=== PATIENT | female | born 1985 | race Caucasian/White ===

== ENCOUNTER 2016-12-21 12:38 | Emergency (ER) | payer MEDICAID, OTHER ==
[~2016-12-21] VITALS: Ht 157.5 cm; Wt 51.0 kg
[2016-12-21 12:52] VITALS: Ht 157.5 cm; Wt 51.0 kg
[2016-12-21] MEDS ORDERED: ACETAMINOPHEN 325 MG TAB PO STA (14:54)
[2016-12-21 15:16] LABS: ADD SCAN DIFF NO
[2016-12-21 15:18] LABS: BASOPHILS % 0.3 % (0.0-2.0); EOSINOPHILS % 0.3 % (0.0-7.0); HEMATOCRIT 43.3 % (37.0-47.0); HEMOGLOBIN 14.7 g/dl (12.0-16.0); LYMPHOCYTES # 2.2 10^3/ul (0.8-2.9); LYMPHOCYTES % 20.6 % (15.0-51.0); MEAN CORPUSCULAR HEMOGLOBIN 30.8 pg (29.0-33.0); MEAN CORPUSCULAR HGB CONC 33.9 g/dl (32.0-37.0); MEAN CORPUSCULAR VOLUME 90.8 fl (82.0-101.0); MEAN PLATELET VOLUME 11.9 fl (7.4-10.4); MONOCYTE # 0.6 10^3/ul (0.3-0.9); MONOCYTES % 5.3 % (0.0-11.0); NEUTROPHIL # 7.7 10^3/ul (1.6-7.5); NEUTROPHILS % 72.9 % (39.0-77.0); PLATELET COUNT 188 10^3/UL (140-415); RED BLOOD COUNT 4.77 10^6/ul (4.20-5.40); RED CELL DISTRIBUTION WIDTH 12.4 % (11.5-14.5); WHITE BLOOD COUNT 10.6 10^3/ul (4.8-10.8)
[2016-12-21 15:20] LABS: ADD UMIC NO; URINE BILIRUBIN (Dip) NEGATIVE (NEGATIVE); URINE BLOOD (Dip) NEGATIVE (NEGATIVE); URINE COLOR LT. YELLOW (YELLOW); URINE GLUCOSE (Dip) NEGATIVE (NEGATIVE); URINE KETONES (Dip) TRACE (NEGATIVE); URINE LEUKOCYTE ESTERASE (Dip) NEGATIVE (NEGATIVE); URINE NITRITE (Dip) NEGATIVE (NEGATIVE); URINE TOTAL PROTEIN (Dip) NEGATIVE (NEGATIVE); URINE UROBILINOGEN (Dip) 0.2 E.U./dL (0.1-1.0)
--- NOTE | 2016-12-21 15:47 | RADRPT ---
PROCEDURE: OBSTETRICAL ULTRASOUND WITH ENDOVAGINAL IMAGES CLINICAL INDICATION: Vaginal Bleed () TECHNIQUE: Multiple sonographic images of the pelvis were obtained utilizing a transabdominal and endovaginal technique. The images were reviewed on a PACS workstation. COMPARISON: None. LMP: 10/23/2016 FINDINGS: There is a single live intrauterine with heart rate of 100 beats per minute, mean sa c diameter of 1.31 cm, yolk sac, and crown-rump length of 0.58 cm which is consistent with a gestati onal age of 6 weeks, 2 days . The estimated date of delivery by ultrasound is 08/14/2017 . The estimated gestational age by LMP is 8 weeks, 3 days . The estimated date of delivery by LMP is 07/30/2017 . There is a 4 x 3 x 4 mm hypoechoic lesion adjacent to the gestational sac consistent with a subchori onic hemorrhage. The right ovary measures 3.7 x 2.1 x 2.2 cm. The left ovary is not visualized. There is normal vascu lar flow in the right ovary No significant ovarian lesions are seen. No significant pelvic free fluid is identified. IMPRESSION: Single live intrauterine consistent with a gestational age of 6 weeks, 2 days . The estimated date of delivery is 08/14/2017 . Dating by ultrasound is within 2 weeks and 1 day of dating by LMP. Low heart rate of 100 beats per minute is likely due to the early nature of the . At tention on follow-up is recommended. 4 mm subchorionic hemorrhage. Nonvisualization of the left ovary. RPTAT: EE Physician Benedicto Date Time Electronically viewed and signed by Physician Benedicto on 12/21/2016 15:47 /
[2016-12-21 16:49] VITALS: BP 138/81; PULSE 77; RESP 16
--- NOTE | 2016-12-21 18:04 | ERD ---
ER Documentation Chief Complaint Date/Time DATE: 12/21/16 TIME: 18:01 Chief Complaint VAGINAL BLEEDING X 1 DAY, 7 WEEKS , BACK PAIN HPI Patient is a 31-year-old female who is with a last menstrual period of 06/29 who presents to the ED with mild vaginal spotting yesterday. She also complains of mild pelvic pain. Denies dysuria. Denies fever or chills. Denies abdominal pain, nausea, vomiting or diarrhea. She states that she has an OB doctor but is unsure of the name of the clinic or the name of the doctor. She has no other complaints. ROS All systems reviewed and are negative except as per history of present illness. Allergies Allergies: Coded Allergies: No Known Allergy (Unverified , 12/21/16) PMhx/Soc Medical and Surgical Hx: pt denies Medical Hx, pt denies Surgical Hx Physical Exam Vitals Vital Signs Date Time Temp Pulse Resp B/P Pulse Ox O2 Delivery O2 Flow Rate FiO2 12/21/16 16:49 77 16 138/81 100 Room Air 12/21/16 12:52 98.1 75 18 135/69 100 Physical Exam GENERAL: Well-developed, well-nourished female. Appears in no acute distress. HEAD: Normocephalic, atraumatic. EYES: Pupils are equally reactive bilaterally. EOMs grossly intact. No conjunctival erythema. ENT: Moist mucous membranes. No uvula deviation. No kissing tonsils. No exudates. NECK: Supple. No lymphadenopathy or thyromegaly. No meningismus. negative kernig. negative brudinski. LUNG: Clear to auscultation bilaterally. No rhonchi, wheezing, rales or coarse breath sounds. HEART: Regular rate and rhythm. No murmurs, rubs or gallops. ABDOMEN: No scars, ecchymosis or rashes noted. Soft, nontender, and nondistended. Positive bowel sounds in all four quadrants. No rebound tenderness , no guarding. (-) McBurneys point tenderness. No CVA tenderness. BACK: No midline tenderness. Extremities: Equal pulses bilaterally. No peripheral clubbing, cyanosis or edema. No unilateral leg swelling. NEUROLOGIC: Alert and oriented. Moving all four extremities. 5/5 strength in all extremities. Normal speech. Steady gait. SKIN: Normal color. Warm and dry. No rashes or lesions. Capillary refill < 2 seconds Result Diagram: 12/21/16 1505 Results 24 hrs Laboratory Tests Test 12/21/16 15:05 White Blood Count 10.610^3/ul Red Blood Count 4.7710^6/ul Hemoglobin 14.7g/dl Hematocrit 43.3% Mean Corpuscular Volume 90.8fl Mean Corpuscular Hemoglobin 30.8pg Mean Corpuscular Hemoglobin Concent 33.9g/dl Red Cell Distribution Width 12.4% Platelet Count 98685^3/UL Mean Platelet Volume 11.9fl Neutrophils % 72.9% Lymphocytes % 20.6% Monocytes % 5.3% Eosinophils % 0.3% Basophils % 0.3% Nucleated Red Blood Cells % 0.0/100WBC Neutrophils # 7.710^3/ul Lymphocytes # 2.210^3/ul Monocytes # 0.610^3/ul Eosinophils # 0.010^3/ul Basophils # 0.010^3/ul Nucleated Red Blood Cells # 0.010^3/ul Urine Color LT. YELLOW Urine Clarity CLEAR Urine pH 7.0 Urine Specific [place] 1.010 Urine Ketones TRACE Urine Nitrite NEGATIVE Urine Bilirubin NEGATIVE Urine Urobilinogen 0.2 E.U./dL Urine Leukocyte Esterase NEGATIVE Urine Hemoglobin NEGATIVE Urine Glucose NEGATIVE% Urine Total Protein NEGATIVE Beta HCG, Quantitative 83943.0mIU/ml Current Medications Medications (Trade) Dose Ordered Sig/Robert Route PRN Reason Start Time Stop Time Status Last Admin Dose Admin Acetaminophen (Tylenol Tab) 650 mg ONCE STAT PO 12/21/16 14:54 12/21/16 14:55 DC Procedures/MDM ER COURSE: I kept the patient and/or family informed of laboratory and diagnostic imaging results throughout the emergency room course. EKG, MONITORS, & DIAGNOSTIC IMAGING: [place] [id number] Radiology Main Line: [phone] DIAGNOSTIC IMAGING REPORT Patient: LAWANDA BOX : 1985 Age: 31 Sex: F MR #: [id number] DOS: 12/21/16 1454 Ordering MD: AUSTIN NICK PA-C Location: [facility] Room/Bed: PROCEDURE: OBSTETRICAL ULTRASOUND WITH ENDOVAGINAL IMAGES CLINICAL INDICATION: Vaginal Bleed () TECHNIQUE: Multiple sonographic images of the pelvis were obtained utilizing a transabdominal and endovaginal technique. The images were reviewed on a PACS workstation. COMPARISON: None. LMP: 10/23/2016 FINDINGS: There is a single live intrauterine with heart rate of 100 beats per minute, mean sac diameter of 1.31 cm, yolk sac, and crown-rump length of 0.58 cm which is consistent with a gestational age of 6 weeks, 2 days . The estimated date of delivery by ultrasound is 08/14/2017 . The estimated gestational age by LMP is 8 weeks, 3 days . The estimated date of delivery by LMP is 07/30/2017 . There is a 4 x 3 x 4 mm hypoechoic lesion adjacent to the gestational sac consistent with a subchorionic hemorrhage. The right ovary measures 3.7 x 2.1 x 2.2 cm. The left ovary is not visualized. There is normal vascular flow in the right ovary No significant ovarian lesions are seen. No significant pelvic free fluid is identified. IMPRESSION: Single live intrauterine consistent with a gestational age of 6 weeks , 2 days . The estimated date of delivery is 08/14/2017 . Dating by ultrasound is within 2 weeks and 1 day of dating by LMP. Low heart rate of 100 beats per minute is likely due to the early nature of the . Attention on follow-up is recommended. 4 mm subchorionic hemorrhage. Nonvisualization of the left ovary. RPTAT: EE Physician Benedicto Date Time Electronically viewed and signed by Physician Benedicto on 12/21/2016 15:47 RA/ CC: AUSTIN NICK PA-C RH: O+ [facility].0 MEDICATIONS: Tylenol. Tolerated well with no adverse reaction. LAB INTERPRETATION: CBC showed no evidence of systemic infection or severe anemia. UA showed no evidence of leukocytes, nitrites or hematuria. Urine test was negative. MEDICAL DECISION MAKING: This is a 31-year-old female who presents with vaginal spotting and pelvic pain 1 day. She is . Vital signs were reviewed. Patient is afebrile. Patient is not hypoxic. Patient is not toxic or ill-appearing. Her ultrasound is read by radiologist is unremarkable. Low suspicion for ovarian torsion, PID, tuboovarian abscess, ectopic , bowel obstruction, pyelonephritis, appendicitis, cervicitis, septic , molar , HELLP syndrome, preeclampsia, eclampsia, placenta previa, placenta abruptia. DISCHARGE: At this time, patient is stable for discharge and outpatient management with no new complaints during the ER course. Patient was sent home with copy of imaging and laboratory studies to follow-up with her OB doctor.. Patient will be discharged home with instructions to recheck for new or worsening symptoms such as fever, nausea, weakness, LOC and to follow up with primary care in the next 1 -2 days. Patient was advised to return to the ER for any new or worsening symptoms. Plan was discussed and patient and/or family understands and agrees. Home instructions were given. Departure Diagnosis: Primary Impression: Vaginal bleeding in patient at less than 20 weeks ges... Condition: Stable Patient Instructions: Bleeding During Early Referrals: NO PRIMARY,CARE PHYSICIAN (PCP) Additional Instructions: Llame al doctor MAANA y tracey donna NARENDRA PARA DENTRO DE 1-2 GUNTER.Dgale a la secretaria que nosotros le instruimos hacer esta narendra.Avise o llame si page condicin se empeora antes de la narendra. Regresa aqui si peor o no mejor. AUSTIN NICK PA-C Dec 21, 2016 18:03
== END 2016-12-21 16:50 | disposition home or self-care (01) ==
LOC: FTE 12:38
DX: O20.9 Hemorrhage in early pregnancy, unspecified (principal); R10.2 Pelvic and perineal pain; Z3A.01 Less than 8 weeks gestation of pregnancy
CPT/HCPCS: 36415; 76801; 76817; 81003; 84702; 85025; 86900; 86901; Z7502; Z7610

== ENCOUNTER 2017-08-17 05:10 | Inpatient (IN) | payer MEDICAID ==
[~2017-08-17] VITALS: Ht 149.9 cm; Wt 65.3 kg
[2017-08-17 05:36] VITALS: BP 125/63; RESP 18; Ht 149.9 cm; Wt 65.3 kg
[2017-08-17] MEDS: LACTATED RINGER'S 1,000 ML IV SCH ×3 (05:55→15:17)
--- NOTE | 2017-08-17 05:56 | RADRPT ---
PROCEDURE: Limited OB ultrasound CLINICAL INDICATION: Unknown presentation TECHNIQUE: Sonographic evaluation to assess the presentation was performed. Transabdominal imaging of the gravid uterus was performed. COMPARISON: No prior exam is available for comparison. FINDINGS: There is a single live intrauterine with cardiac activity, with a heart rate o f 141 bpm. position is cephalic. The placenta is fundal. IMPRESSION: Cephalic presentation. RPTAT: HH .Gayle Scott MD, MD Date Time Electronically viewed and signed by .Gayle Scott MD, on 08/17/2017 05:56 .G/
[2017-08-17] MEDS ORDERED: MISOPROSTOL 200 MCG TAB PR PRN ×3 (06:00→19:00)
[2017-08-17] MEDS ORDERED: CARBOPROST 250 MCG INJ IM PRN ×3 (06:00→19:00)
[2017-08-17] MEDS ORDERED: OXYTOCIN 30 UNITS/LR 500 ML IV SCH ×3 (06:00→07:00)
[2017-08-17] MEDS ORDERED: CEFAZOLIN 2 GM/50 ML (PMX) 50 ML IV SCH (06:00)
[2017-08-17] MEDS ORDERED: OXYTOCIN 30 UNITS/LR 500 ML IV PRN ×3 (06:00→19:00)
[2017-08-17] MEDS ORDERED: METHYLERGONOVINE 0.2 MG INJ IM PRN ×3 (06:00→19:00)
[2017-08-17 06:43] LABS: BASOPHILS % 0.4 % (0.0-2.0); EOSINOPHILS # 0.1 10^3/ul (0.0-0.5); EOSINOPHILS % 0.9 % (0.0-7.0); HEMATOCRIT 38.4 % (37.0-47.0); HEMOGLOBIN 13.6 g/dl (12.0-16.0); LYMPHOCYTES # 1.7 10^3/ul (0.8-2.9); LYMPHOCYTES % 20.5 % (15.0-51.0); MEAN CORPUSCULAR HEMOGLOBIN 31.9 pg (29.0-33.0); MEAN CORPUSCULAR HGB CONC 35.4 g/dl (32.0-37.0); MEAN CORPUSCULAR VOLUME 89.9 fl (82.0-101.0); MONOCYTE # 0.7 10^3/ul (0.3-0.9); NEUTROPHIL # 5.6 10^3/ul (1.6-7.5); NEUTROPHILS % 68.5 % (39.0-77.0); PLATELET COUNT 104 10^3/UL (140-415); RED BLOOD COUNT 4.27 10^6/ul (4.20-5.40); RED CELL DISTRIBUTION WIDTH 13.5 % (11.5-14.5); WHITE BLOOD COUNT 8.2 10^3/ul (4.8-10.8)
[2017-08-17] MEDS: DEXTROSE 5%-LR 1,000 ML IV SCH ×2 (06:43→14:43)
[2017-08-17 07:00] LABS: INR 0.87; PROTIME 11.9 Sec (11.9-14.9); PT RATIO 0.9
[2017-08-17] MEDS ORDERED: BUTORPHANOL 2 MG INJ IV PRN ×2 (07:00)
[2017-08-17] MEDS ORDERED: DINOPROSTONE 10 MG VAG SUPP VAG ONE (07:00)
[2017-08-17] MEDS ORDERED: IBUPROFEN 600 MG TAB PO PRN (07:00)
[2017-08-17] MEDS ORDERED: LIDOCAINE 1% (MPF) 30 ML INJ INJ PRN (07:00)
[2017-08-17 07:01] LABS: PARTIAL THROMBOPLASTIN TIME 28.6 Sec (25.0-35.0)
--- NOTE | 2017-08-17 07:29 | RADRPT ---
PROCEDURE: US OB. CLINICAL INDICATION: Size and dates TECHNIQUE: Multiple sonographic images of the pelvis were obtained. Transabdominal imaging only w as performed. The images were reviewed on a PACS workstation. COMPARISON: No prior studies are available for comparison. FINDINGS: There is a single live intrauterine gestation. Cardiac activity is present with 137 beats per minut e. position is transverse with head to the maternal left. Measurements were made in order to determine age. The results are as follows: BPD = 9.36 cm HC = 33.83 cm AC = 35.87 cm FL = 7.47 cm. Estimated gestational age of approximately 38 weeks 5 days. The estimated date of delivery is 08/26/2017. The EFW = 3693 g, 50th %ile. The placenta is fundal. There is no evidence for an abruption or placenta previa. There are no adnexal masses. IMPRESSION: 1. Single live intrauterine gestation of approximately 38 weeks 5 days, by ultrasound criteria. 2. The estimated date of delivery is 08/26/2017. 3. The estimated weight is 3693 g, 50 %ile. RPTAT: HH .Gayle Scott MD, Date Time Electronically viewed and signed by .Gayle Scott MD, on 08/17/2017 07:29 .G/
[2017-08-17] MEDS ORDERED: CEFAZOLIN 2 GM/50 ML (PMX) 50 ML IVPB ONE (07:30)
--- NOTE | 2017-08-17 07:35 | RADRPT ---
PROCEDURE: OB ultrasound for biophysical profile CLINICAL INDICATION: Induction TECHNIQUE: Multiple sonographic images of the pelvis were obtained. Transabdominal views of the g ravid uterus are available for review. The images were reviewed on a PACS workstation. COMPARISON: None FINDINGS: breathing movement = 2/2 tone = 2/2 motion = 2/2 LYNN = 2/2 LYNN = 7.3 cm Single live intrauterine with cardiac activity of 126 bpm. position is transv erse with head to the maternal left. The placenta is fundal. IMPRESSION: 1. Single live intrauterine gestation. 2. Biophysical profile = 88. 3. LYNN = 7.3 cm. 4. Transverse presentation with head to the maternal left. RPTAT: HH .Gayle Scott MD, Date Time Electronically viewed and signed by .Gayle Scott MD, on 08/17/2017 07:35 .G/
[2017-08-17] MEDS ORDERED: CITRIC ACID/SODIUM CITRATE 15 ML CUP PO ONE (08:00)
[2017-08-17] MEDS ORDERED: ONDANSETRON 4 MG INJ IV ONE (08:00)
[2017-08-17] MEDS ORDERED: morphine SULFATE/PF (10 MG/10 ML) INJ ONE (08:06)
[2017-08-17] MEDS ORDERED: METOCLOPRAMIDE 10 MG INJ ONE (08:06)
[2017-08-17] MEDS ORDERED: OXYTOCIN 10 UNIT INJ ONE (08:06)
[2017-08-17] MEDS ORDERED: PHENYLephrine (100 MCG/ML) 5ML SYG ONE (08:06)
[2017-08-17] MEDS ORDERED: KETOROLAC 30 MG INJ ONE (08:07)
[2017-08-17] MEDS ORDERED: DEXAMETHASONE 4 MG/ML 1 ML INJ ONE (08:07)
--- NOTE | 2017-08-17 09:36 | HP ---
Date/Time of Note Date/Time of Note DATE: 08/17/17 TIME: 09:27 OB - History Hx of Present Free Text/Dictation 31 years old female admitted to [facility] at 40 weeks and 3 days with due date August 14, 2017 diagnosed with unstable breech presentation at this point by the report of the latest ultrasound babies and transverse lie position. Being prepared to undergo a primary procedure, and complication may arise from this operation including but not limited to bowel and bladder injury infection hemorrhage hematoma of the wound as well as complication may arise during the delivery of breech baby has been discussed with the patient and she would like to proceed with the operation Estimated Due Date: Aug 14, 2017 : 1 Para: 0 Ultrasounds: Normal mid trimester US Obstetrical Complications: Gestational Diabetes Medical Complications: None Past Family/Social History * Past Medical, Surgical, Family and Obstetric Histories reviewed from chart. Rubella: immune RPR/VDRL: Negative GBS Status: Negative HBsAG: Negative OB Admission Exam Vital Signs Vital Signs Vital Signs Date Time Temp Pulse Resp B/P Pulse Ox O2 Delivery O2 Flow Rate FiO2 08/17/17 05:36 98.0 18 125/63 Room Air Physical Exam HEENT: WNL Heart: Rhythm Normal Lungs: Clear, Equal Abdomen: WNL Extremities: Normal Reflexes: Normal Station: Other (Transverse lie presentation) Heart Rate: 130's Accelerations: Accelerations Present Decelerations: No Decelerations Varibility: Moderate Intensity: Firm Last 72 hours Lab Results CBC & BMP 08/17/17 05:50 OB Assessment/Plan Reason for admission: other ( at 40 weeks and a half with transverse lie/breech presentation) Other plan: 31 years old EDC August 14, 1940 weeks and 3 days baby's position transverse lie to breech presentation, being prepared to undergo primary section she has been counseled regarding the complication of the surgery including but not limited to bowel bladder injury infection hemorrhage wound hematoma and complication that may arise during the delivery of a baby with transverse/breech presentation, she is willing to proceed with the operation. AILYN BAILEY MD Aug 17, 2017 09:36
[2017-08-17] MEDS ORDERED: morphine 4 MG/ML VIAL IV PRN (10:00)
[2017-08-17] MEDS ORDERED: HYDROmorphONE 0.5 MG/0.5 ML SYG IV PRN ×2 (10:00)
[2017-08-17] MEDS ORDERED: ONDANSETRON 4 MG INJ IV PRN (10:00)
[2017-08-17] MEDS ORDERED: HYDROCODONE/APAP (5/325) TAB PO PRN ×3 (10:00→19:00)
[2017-08-17] MEDS ORDERED: morphine 2 MG INJ IV PRN (10:00)
[2017-08-17] MEDS ORDERED: NALOXONE (0.4 MG/ML) INJ IV PRN (10:00)
[2017-08-17] MEDS ORDERED: ACETAMINOPHEN 500 MG TAB PO PRN (10:00)
[2017-08-17] MEDS ORDERED: DIPHENHYDRAMINE 50 MG INJ IV PRN (10:00)
[2017-08-17] MEDS ORDERED: NALBUPHINE HCL (10 MG/1 ML) INJ IV PRN (10:00)
[2017-08-17] MEDS ORDERED: MEPERIDINE 100 MG INJ ONE (10:01)
[2017-08-17] MEDS ORDERED: FENTAnyl 50 MCG/ML VIAL ONE (10:03)
--- NOTE | 2017-08-17 10:30 | OPR ---
Operative Report Planned Procedure Free Text/Dictation 31 years old female G one P0 EDC August 14, 2017 admitted at 40 weeks and 3 days with unstable presentation transverse lie, being prepared to undergo primary . Procedure date Aug 17, 2017 Procedure(s) Primary Performed by see signature line Turn Operator RAZA Mallory Anesthesiologist: CARYN GILLESPIE MD Pre-procedure diagnosis UNstable presentation transverse lie Anesthesia Type: spinal Post-Procedure Post-procedure diagnosis Transverse lie presentation Findings Live Baby boy 9 and 9 nuchal cord 1 Estimated Blood Loss: 500 - 600 mls Specimen(s) none Grafts/Implant(s) none Complication(s) none Pt Condition post procedure: stable Procedure Description Under satisfactory spinal anesthesia patient prepped and draped and placed in supine position. Pfannenstiel incision was made. Incision carried through the subcutaneous tissue. Fascia incised to the length of incision. Rectus muscle divided in midline. Peritoneum exposed and entered to a vertical incision. Exploration of abdomen revealed [gravid uterus at term normal-appearing tubes and ovaries.] Bladder flap was developed. Transverse incision was made in the lower segment of the uterus. Amniotic sac ruptured, [clear amniotic fluid noted. ] Live baby boy was delivered from shoulder presentation which was turned to vertex and delivered as vertex.Naso oropharyngeal suction was performed. Baby handed to the team for immediate attention. Patient received 20 units of Pitocin. Placenta delivered manually intact. Uterine cavity cleaned with a wet sponge and drainage established. Uterus closed in 2 layers using Monocryl # 1 in continuous fashion. Peritoneal cavity irrigated with warm saline. Sponge needle instrument reported to be correct. Abdominal peritoneum closed with 2-0 chromic catgut continuously. Fascia closed with #1 PDS in a continuous fashion. Subcutaneous tissue irrigated with warm saline and approximated with 2-0 chromic catgut skin closed with N sorb. Estimated blood loss 600CC urine bag containing [200] mL of [clear] urine. Patient tolerated procedure well and transferred to recovery room in good condition. AILYN BAILEY MD Aug 17, 2017 10:30
[2017-08-17 14:25] VITALS: BP 112/73; PULSE 79; RESP 18
[2017-08-17 16:00] VITALS: BP 106/55; PULSE 82; RESP 18
[2017-08-17] MEDS ORDERED: OXYCODONE/ACETAMINOPHEN (5/325) TAB PO PRN ×2 (19:00)
[2017-08-17] MEDS ORDERED: LANOLIN 7 GM TUBE TOP PRN (19:00)
[2017-08-17] MEDS ORDERED: CEFAZOLIN 1 GM/50 ML (PMX) 50 ML IVPB SCH (19:00)
[2017-08-17 19:45] VITALS: BP 103/65; PULSE 89; RESP 18
[2017-08-17] MEDS: OXYTOCIN 30 UNITS/LR 500 ML IV SCH (19:46)
[2017-08-17] MEDS ORDERED: INFLUENZA VIRUS VACCINE 0.5 ML (DISPENSING) IM* ONE (21:00)
[2017-08-17] MEDS: SENNA/DOCUSATE NA (8.6MG/50MG) TAB PO SCH (21:24)
[2017-08-17 23:45] VITALS: BP 110/64; PULSE 81; RESP 18
[2017-08-18] MEDS: OXYTOCIN 30 UNITS/LR 500 ML IV SCH ×2 (01:36→05:42)
[2017-08-18] MEDS: KETOROLAC 30 MG INJ IV PRN ×2 (01:44→09:13)
[2017-08-18 04:00] VITALS: BP 103/61; PULSE 72; RESP 18
[2017-08-18 08:25] VITALS: BP 108/61; PULSE 75; RESP 18
[2017-08-18] MEDS: SENNA/DOCUSATE NA (8.6MG/50MG) TAB PO SCH ×2 (09:13→21:06)
--- NOTE | 2017-08-18 10:41 | PN ---
Date/Time of Note Date/Time of Note DATE: 08/18/17 TIME: 10:39 OB Subjective Subjective Subjective Breast-feeding, passed flatus. Tolerated p.o. well. Not ambulating yet. Still has Marcos in. Complaining of postop pain in the incision. OB Objective Objective Objective General appearance: Alert and oriented 4. Appears to be in mild distress. Abdomen: Soft, no fundal tenderness, no incisional tenderness, no abnormal discharge from the incision, erythema or drainage Extremities: No calf tenderness, no cords palpable, no edema Breast: No evidence of erythema, tenderness or engorgement Hematology - 72 Hrs Test 08/17/17 05:50 White Blood Count 8.210^3/ul (4.8-10.8) # Red Blood Count 4.2710^6/ul (4.20-5.40) Hemoglobin 13.6g/dl (12.0-16.0) Hematocrit 38.4% (37.0-47.0) Mean Corpuscular Volume 89.9fl (82.0-101.0) Mean Corpuscular Hemoglobin 31.9pg (29.0-33.0) Mean Corpuscular Hemoglobin Concent 35.4g/dl (32.0-37.0) Red Cell Distribution Width 13.5% (11.5-14.5) Platelet Count 77789^3/UL (140-415) #L Mean Platelet Volume 13.0fl (7.4-10.4) H Neutrophils % 68.5% (39.0-77.0) Lymphocytes % 20.5% (15.0-51.0) Monocytes % 9.0% (0.0-11.0) Eosinophils % 0.9% (0.0-7.0) Basophils % 0.4% (0.0-2.0) Nucleated Red Blood Cells % 0.0/100WBC (0.0-0.0) Neutrophils # 5.610^3/ul (1.6-7.5) Lymphocytes # 1.710^3/ul (0.8-2.9) Monocytes # 0.710^3/ul (0.3-0.9) Eosinophils # 0.110^3/ul (0.0-0.5) Basophils # 0.010^3/ul (0.0-0.1) Nucleated Red Blood Cells # 0.010^3/ul (0.0-0.0) Chemistry Test 08/17/17 05:50 Glucose Level 93mg/dl (70-220) OB Assessment/Plan Other Assessment: Status post primary low transverse section due to unstable lie/ transverse presentation Uncomplicated GDM, A1, normal blood sugar Routine postop care DC Marcos Ambulation MARIEL GRAHAM MD Aug 18, 2017 10:41
[2017-08-18 11:19] LABS: BASOPHILS % 0.3 % (0.0-2.0); EOSINOPHILS % 0.1 % (0.0-7.0); HEMATOCRIT 28.6 % (37.0-47.0); LYMPHOCYTES # 1.3 10^3/ul (0.8-2.9); LYMPHOCYTES % 11.5 % (15.0-51.0); MEAN CORPUSCULAR HEMOGLOBIN 31.4 pg (29.0-33.0); MEAN CORPUSCULAR VOLUME 89.9 fl (82.0-101.0); MEAN PLATELET VOLUME 12.7 fl (7.4-10.4); MONOCYTE # 0.7 10^3/ul (0.3-0.9); MONOCYTES % 6.5 % (0.0-11.0); NEUTROPHILS % 81.1 % (39.0-77.0); PLATELET COUNT 116 10^3/UL (140-415); RED BLOOD COUNT 3.18 10^6/ul (4.20-5.40); RED CELL DISTRIBUTION WIDTH 13.5 % (11.5-14.5); WHITE BLOOD COUNT 11.1 10^3/ul (4.8-10.8)
[2017-08-18] MEDS: IBUPROFEN 600 MG TAB PO SCH ×3 (12:00→23:54)
[2017-08-18 16:30] VITALS: BP 92/52; PULSE 86; RESP 20
[2017-08-18 19:35] VITALS: BP 122/60; PULSE 84; RESP 18
--- NOTE | 2017-08-19 00:37 | OPPN ---
Date/Time of Note Date/Time of Note DATE: 08/19/17 TIME: 00:37 Post-Anesthesia Notes Post-Anesthesia Note Last documented vital signs Vital Signs Date Time Temp Pulse Resp B/P Pulse Ox O2 Delivery O2 Flow Rate FiO2 08/18/17 19:35 98.0 84 18 122/60 Room Air 08/18/17 16:58 96 21 Activity: WNL Respiratory function: WNL Cardiovascular function: WNL Mental status: Baseline Pain reasonably controlled: Yes Hydration appropriate: Yes Nausea/Vomiting absent: Yes CARYN GILLESPIE MD Aug 19, 2017 00:37
[2017-08-19 03:50] VITALS: BP 103/52; PULSE 81; RESP 19
[2017-08-19] MEDS: IBUPROFEN 600 MG TAB PO SCH ×3 (05:30→17:33)
[2017-08-19 08:45] VITALS: BP 116/67; PULSE 85; RESP 18
[2017-08-19] MEDS ORDERED: INFLUENZA VIRUS VACCINE 0.5 ML SYG IM* ONE (09:00)
--- NOTE | 2017-08-19 09:40 | QN ---
Documentation Comment Post day 2 Afebrile, vital signs are stable Abdomen soft incision dry bowel sounds present no bowel movement ambulation encouraged enema recommended AILYN BAILEY MD Aug 19, 2017 09:40
[2017-08-19] MEDS: SENNA/DOCUSATE NA (8.6MG/50MG) TAB PO SCH ×2 (09:46→22:00)
[2017-08-19] MEDS ORDERED: NA PHOSPHATE/BIPHOS 133 ML ENEMA PR ONE (10:00)
[2017-08-19 16:00] VITALS: BP 109/66; PULSE 77; RESP 18
[2017-08-19 20:00] VITALS: BP 114/61; PULSE 80; RESP 18
[2017-08-20] VITALS: BP 121/64; PULSE 68; RESP 18
[2017-08-20] MEDS: IBUPROFEN 600 MG TAB PO SCH ×3 (00:02→12:23)
[2017-08-20 03:30] VITALS: BP 116/63; PULSE 78; RESP 18
[2017-08-20 08:10] VITALS: BP 112/66; PULSE 79; RESP 18
[2017-08-20] MEDS ORDERED: DIPHTH/TET/ACEL PERTUSS (ADULT) 0.5 ML VIAL IM* ONE (09:00)
[2017-08-20] MEDS: SENNA/DOCUSATE NA (8.6MG/50MG) TAB PO SCH (11:01)
--- NOTE | 2017-08-20 11:46 | NSTRPT ---
NST Information Datetime Report Generated by CPN: 08/20/2017 11:45 Datetime: 08/16/2017 10:24 NST Information EGA: 40.2 Test Number: 4 Time on Monitor: 08/16/2017 10:40 Time off Monitor: 08/16/2017 11:03 NST Duration (Min): 23 Reason for NST: Diabetes Mellitus; Other Reason for NST Other: A1DM Test and Monitor Explained: Monitor Explained; Test Explained; Verbalized Understanding Pulse: 68 Resp: 16 SBP: 113 DBP: 63 Test Evaluation NST Interventions: Reposition Patient Patient States Movement: Present Contraction Frequency: x2, mild FHR Baseline : 140 Variability: Moderate 6-25bpm Accelerations: 15X15 Decelerations: None FHR Category: Category I NST Results: Reactive Comments: To u/s, LYNN 8.3cm, breech FBS 78 Electronically Signed By E-Signature: with User ID: [id number] Datetime: 08/12/2017 10:17 NST Information EGA: 39.5 NST Duration (Min): 25 Datetime: 08/09/2017 10:28 NST Information EGA: 39.2 NST Duration (Min): 39 Datetime: 08/03/2017 14:55 NST Information EGA: 38.3 Datetime: 08/03/2017 14:50 NST Duration (Min): 39
--- NOTE | 2017-08-20 12:48 | DS ---
Date/Time of Note Date/Time of Note DATE: 08/20/17 TIME: 12:47 Obstetrical Discharge Record Final Diagnosis Final Diagnosis: Term delivered Section Section: Primary Primary Indication Breech Condition on Discharge Physical Assessment Voiding: Yes Bowel Movement: Yes Breast: Soft, non-tender, Filling Fundus: Firm Abdomen and Incision: Incision intact Calf Tenderness: No Patient Condition: Stable BRENDA LYON MD Aug 20, 2017 12:47
== END 2017-08-20 14:40 | disposition home or self-care (01) | DRG 766 ==
LOC: L-D 05:10 → PP1 14:51
PROVIDERS: ADMIT Obstetrics & Gynecology; ATTEND Obstetrics & Gynecology
PROC: 3E033VJ Introduction of Other Hormone into Peripheral Vein, Percutaneous Approach (ICD-10-PCS; 2017-08-17)
PROC: 10D00Z1 Extraction of Products of Conception, Low, Open Approach (ICD-10-PCS; principal; 2017-08-17 07:30)
DX: O48.0 Post-term pregnancy (principal); O69.81X0 Labor and delivery complicated by cord around neck, without compression, not applicable or unspecified; Z3A.40 40 weeks gestation of pregnancy; Z37.0 Single live birth
CPT/HCPCS: 76815; 76818; 82947; 85025; 85610; 85730; 86592; 86850; 86900; 86901; 90686; 90715; 94760; 99464; J0690; J1100; J1885; J2175; J2274; J2370; J2405; J2590; J2765; J3010; J7120; J7121